=== PATIENT | male | born 1950 | race American Indian/Alaskan Native ===

== ENCOUNTER 2020-03-07 06:48 | Outpatient (CLI) | payer MEDICARE, OTHER, SELFPAY | END 2020-03-07 06:49 | disposition home or self-care (01) | PROVIDERS: PCP Internal Medicine Geriatric Medicine; Visit Provider Internal Medicine Gastroenterology | DX: Z01.818 Encounter for other preprocedural examination (principal); Z11.59 Encounter for screening for other viral diseases | CPT/HCPCS: 87635; U0003 ==

== ENCOUNTER 2020-03-09 00:20 | Day surgery (SDC) | payer MEDICARE, OTHER, SELFPAY ==
[2020-03-03 13:00] VITALS: BMI 29.2
[2020-03-09] MEDS: LACTATED RINGERS 1,000 ML 150 ML IV CONT (06:47)
[2020-03-09 06:52] VITALS: BP 124/75; PULSE 60; RESP 16; TEMP 36.2; O2SAT 99
[2020-03-09 06:54] LABS: Glucose Point of Care 185 (65-105)
--- NOTE | 2020-03-09 07:02 | WPDANESEPPF ---
Anes - Initial Pre Proc Eval Procedure: Operation Date: 03/09/20 07:30 Proposed Procedures p Screening Colonoscopy - Chucho Funez MD Date/Time: 03/09/20 07:02 Surgeon: Chucho Funez MD Pre Op Diagnosis: Neoplasm Screening Patient Data Age: 69 Gender: M Height: 5 ft 11 in Weight: 95 kg Last Vital Signs Temp 97.2 F L 03/09/20 06:52 Pulse 60 03/09/20 06:52 Resp 16 03/09/20 06:52 BP 124/75 03/09/20 06:52 Pulse Ox 99 03/09/20 06:52 Allergies Allergy/AdvReac Type Severity Reaction Status Date / Time No Known Allergies Allergy NONE Verified 03/09/20 06:49 Home Medications Medication Instructions Recorded Confirmed Type aspirin 81 mg PO DAILY 03/03/20 03/03/20 History carvedilol 3.125 mg PO DAILY 03/03/20 03/03/20 History cetirizine 10 mg PO DAILY 03/03/20 03/03/20 History clopidogrel 75 mg PO DAILY 03/03/20 03/09/20 History dulaglutide [Trulicity] 1.5 mg SUBCUT WEEKLY 03/03/20 03/03/20 History empagliflozin [Jardiance] 25 mg PO DAILY 03/03/20 03/03/20 History ergocalciferol (vitamin D2) 50,000 unit PO WEEKLY 03/03/20 03/03/20 History glimepiride 2 mg PO DAILY 03/03/20 03/03/20 History ibuprofen 800 mg PO PRN PRN 03/03/20 03/03/20 History metformin 500 mg PO DAILY 03/03/20 03/03/20 History pantoprazole 40 mg PO DAILY 03/03/20 03/03/20 History rosuvastatin [Crestor] 20 mg PO DAILY 03/03/20 03/03/20 History testosterone cypionate 200 mg USEASDIRECTD 03/03/20 03/03/20 History Laboratory Tests 03/09/20 06:45 POC Capillary Glucose 185 mg/dl H mg/dl (65-105) Patient hx anesthesia problems: none Family hx anesthesia problems: none PMFSH Past Medical History Medical History (Updated 03/09/20 @ 06:58 by Larry Cintron MD) Hyperlipidemia Hypertension STEPHANIE (obstructive sleep apnea) Peripheral vascular disease Surgical History Surgical History (Updated 03/09/20 @ 07:02 by Larry Cintron MD) S/P CABG x 4 Family History Family History (Updated 05/18/16 @ 23:19 by DOCTOR UNKNOWN) Mother Hypertension Family history of diabetes mellitus in first degree relative Sibling Hypertension Family history of diabetes mellitus in first degree relative Family history of malignant neoplasm of breast in first degree relative Acute myocardial infarction Social History Social History Alcohol intake: never Anes - Eval Final PreProcedure Day of Procedure 03/09/20 07:02 Patient weight: overweight Heart: regular rate and rhythm Lungs: clear to auscultation Airway: Mallampati scale class II Neurological: alert and oriented Last oral intake: >/= 8 hours ASA classification: III Emergent: no Anesthetic plan: proceed Anesthesia type and monitoring: general GIVS and standard monitoring Informed Consent: The patient's anesthetic plan and its attendant risks and benefits were discussed with the patient/family/POA. Questions were solicited and answers provided to the satisfaction of the patient/family/POA.
--- NOTE | 2020-03-09 07:26 | P.HP_ITS ---
History of Present Illness History of Present Illness Consent: Risks, benefits, and alternatives have been discussed and questions answered. Patient agrees to proceed with procedure. Chief complaint: Neoplasm Screening Narrative: Alan Ayala is a 69 year old male Referred for screening colonoscopy [facility] Past Medical History Medical History (Updated 03/09/20 @ 07:26 by Chucho Funez MD) Hyperlipidemia Hypertension STEPHANIE (obstructive sleep apnea) Peripheral vascular disease Surgical History Surgical History (Updated 03/09/20 @ 07:02 by Larry Cintron MD) S/P CABG x 4 Family History Family History Mother Hypertension Family history of diabetes mellitus in first degree relative Sibling Hypertension Family history of diabetes mellitus in first degree relative Family history of malignant neoplasm of breast in first degree relative Acute myocardial infarction Social History Social History Alcohol intake: never Meds Home Medications and Allergies Home Medications Medication Instructions Recorded Confirmed Type aspirin 81 mg PO DAILY 03/03/20 03/03/20 History carvedilol 3.125 mg PO DAILY 03/03/20 03/03/20 History cetirizine 10 mg PO DAILY 03/03/20 03/03/20 History clopidogrel 75 mg PO DAILY 03/03/20 03/09/20 History dulaglutide [Trulicity] 1.5 mg SUBCUT WEEKLY 03/03/20 03/03/20 History empagliflozin [Jardiance] 25 mg PO DAILY 03/03/20 03/03/20 History ergocalciferol (vitamin D2) 50,000 unit PO WEEKLY 03/03/20 03/03/20 History glimepiride 2 mg PO DAILY 03/03/20 03/03/20 History ibuprofen 800 mg PO PRN PRN 03/03/20 03/03/20 History metformin 500 mg PO DAILY 03/03/20 03/03/20 History pantoprazole 40 mg PO DAILY 03/03/20 03/03/20 History rosuvastatin [Crestor] 20 mg PO DAILY 03/03/20 03/03/20 History testosterone cypionate 200 mg USEASDIRECTD 03/03/20 03/03/20 History Allergies Allergy/AdvReac Type Severity Reaction Status Date / Time No Known Allergies Allergy NONE Verified 03/09/20 06:49 Vital Signs Vital Signs - 24 hr 03/09/20 06:52 Temperature 36.2 C L Pulse Rate 60 Respiratory Rate 16 Blood Pressure 124/75 Pulse Oximetry 99 Exam Resp: Auscultation: clear to auscultation bilaterally Cardio: Rate: regular rate Rhythm: regular rhythm GI: GI Palp: Yes Soft to palpation and No Tenderness to palpation present (GI) Assessment and Plan Assessment and plan (1) Colon cancer screening: Code(s): Z12.11 - Encounter for screening for malignant neoplasm of colon Status: Acute Assessment and Plan: Colonoscopy with possible biopsy or polypectomy or cautery or injection of substances.
[2020-03-09 07:43] VITALS: BP 124/63; PULSE 76; RESP 28; O2SAT 93
[2020-03-09 07:52] VITALS: BP 108/62; PULSE 69; RESP 15; O2SAT 95
[2020-03-09 08:00] LABS: Glucose Point of Care 154 (65-105)
[2020-03-09 08:03] VITALS: BP 107/73; PULSE 70; RESP 20; O2SAT 94
== END 2020-03-09 08:16 | disposition home or self-care (01) ==
PROVIDERS: Visit Provider Internal Medicine Gastroenterology
PROC: 0DJD8ZZ Inspection of Lower Intestinal Tract, Via Natural or Artificial Opening Endoscopic (ICD-10-PCS; CPT 45378; principal; 2020-03-09 07:30)
DX: Z12.11 Encounter for screening for malignant neoplasm of colon (principal); K64.8 Other hemorrhoids; I10 Essential (primary) hypertension; E78.5 Hyperlipidemia, unspecified; G47.33 Obstructive sleep apnea (adult) (pediatric); I73.9 Peripheral vascular disease, unspecified; Z95.1 Presence of aortocoronary bypass graft; Z79.82 Long term (current) use of aspirin; Z79.02 Long term (current) use of antithrombotics/antiplatelets; Z79.84 Long term (current) use of oral hypoglycemic drugs
CPT/HCPCS: G0121; 87635; C9803; J2704; J7120; U0003

== ENCOUNTER 2020-09-27 09:17 | Outpatient (NON) | payer MEDICARE, OTHER, SELFPAY ==
[2020-09-27 23:33] LABS: SARS-CoV-2 RNA PCR Negative
== END 2020-09-27 09:18 ==
LOC: ANHCOVIDDT 09:19
PROVIDERS: PCP Internal Medicine Geriatric Medicine; Visit Provider Internal Medicine Geriatric Medicine
DX: Z20.828 Contact with and (suspected) exposure to other viral communicable diseases (principal)
CPT/HCPCS: 87635; C9803; U0003

== ENCOUNTER 2022-09-14 10:34 | Outpatient (CLI) | payer MEDICARE, OTHER, SELFPAY ==
--- NOTE | ~2022-09-14 | MR_ITS ---
EXAMINATION: MR IAC wo/w con DATE: 09/14/2022 11:39 INDICATION: Asymmetric hearing loss. TECHNIQUE: Magnetic resonance imaging (MRI) of the brain, brainstem, and internal auditory canals was performed without and with 19 mL MultiHance intravenous contrast. COMPARISON: None. FINDINGS: There is no intracranial hemorrhage, acute infarction, or abnormal intracranial mass lesion . The ventricles are normal in size. The orbits are normal. There is mild mucosal thickening in the e thmoid sinuses. The internal auditory canals and inner and middle ears are normal. The mastoid air ce lls are normal. IMPRESSION: 1. Normal brain. Reviewed, dictated and finalized at location A. [employer] PROGRAMMER IMPRESSION: 1. Normal brain.
== END 2022-09-14 10:35 | disposition home or self-care (01) ==
LOC: ANHIMG 10:39
PROVIDERS: PCP Internal Medicine Geriatric Medicine; Visit Provider Otolaryngology
DX: H91.8X9 Other specified hearing loss, unspecified ear (principal)
CPT/HCPCS: 70553; A9577

== ENCOUNTER 2022-11-01 10:00 | Outpatient (RCR) | payer MEDICARE, OTHER, SELFPAY ==
--- NOTE | 2022-09-25 15:28 | PTOPEVAL1 ---
Assessment and note entered by Tato Malone, PT Evaluation Information Assessment Status Evaluation Diagnosis vertigo Onset since May of 2022 Subjective Information Patient reports having horrible vertigo 5 years ago and then went to therapy and it was cleared up . After that no issues until May of this year. Was not as bad as first time and with Meclizine it is okay with occasional flare ups. He has the dizziness/light headed feeling after lying down or getting up. Has hearing aids and a constant ringing in his ears. The patient, just takes his time when he is having the dizziness or light headed feeling. Reports he was checked out for orthostatic hypotension. Reported Pain Level Pain Score 0: Self Report Assessment PT Clinical Summary Jose J is a 72 year old male coming into the clinic with symptoms of vertigo and light headedness. Patient reports currently he is doing pretty good, but is noticing that he has a path deviation with walking. Observed L eye moving slower than the R eye so gave patient habituation exercises to improve oculomotor function. Along with that will work on balance and if patient has a more urgent episode of vertigo will do Malissa or other appropriate vestibular maneuver. Plan of Care Interventions Gait Training,Manual Therapy,Neuro Re-education, Patient/Caregiver Education,Therapeutic Activities, Therapeutic Exercise PT Services Indicated Yes Treatment Frequency and 1-2x/wk for 4 weeks Duration These treatments will address the objective and functional deficits as defined above. The patient will be advanced safely and appropriately in order for the patient to progress towards his/her prior level of function. Additional exercises will be introduced and as well as a comprehensive home exercise program upon discharge, if needed, ?to ensure carryover of functional gains achieved in the clinic. This treatment plan has been reviewed and agreement upon by the patient.
--- NOTE | 2022-11-01 10:48 | PTOPDC ---
Assessment and note entered by Tato Malone, PT Evaluation Information Assessment Status Discharge Diagnosis Vertigo Onset May of 2022 Subjective Information Patient reports he has noticed a great improvement in his mobility with no issues of lightheadedness or vertigo. Still will feel a little bit off when doing his high level balance activities such as single limb stance and tandem stance with eyes closed. Patient reports he feels safe with being discharged and knows he does need to continue his exercises more days than not. Reported Pain Level Pain Score 0: Self Report Assessment PT Clinical Summary Jose J is a 72 year old male coming into the clinic for vertigo and lightheadedness. Patient reports no symptoms since evaluation and with habituation exercises has improved oculomotor movement resulting in equal movement between the R and L eye. Discharge from skilled physical therapy at this time. Plan of Care PT Services Indicated No Treatment Frequency and Discharged from skilled physical therapy. Duration
== END 2022-11-01 13:52 | disposition home or self-care (01) ==
LOC: ANHPT 10:00
PROVIDERS: PCP Internal Medicine Geriatric Medicine; Visit Provider Otolaryngology
DX: H81.10 Benign paroxysmal vertigo, unspecified ear (principal)
CPT/HCPCS: 97110; 97161; 97530